=== PATIENT | female | born 1965 | race Caucasian/White ===

== ENCOUNTER 2017-05-27 11:05 | Emergency (ER) | payer OTHER ==
[2017-05-27] MEDS ORDERED: Aspirin Low Dose CHEW TAB* 81 MG PO ONE (11:07)
[2017-05-27 11:55] LABS: Hematocrit 35 % (35-47); Hemoglobin 11.2 g/dl (12.0-16.0); Mean Corpuscular HGB Conc 32 g/dl (31-36); Mean Corpuscular Hemoglobin 28 pg (27-31); Mean Corpuscular Volume 86 fL (80-97); Mean Platelet Volume 8 um3 (7.4-10.4); Red Blood Count 4.06 10^6/ul (4.0-5.4); Red Cell Distribution Width 14 % (10.5-15); White Blood Count 6.7 10^3/ul (3.5-10.8)
--- NOTE | 2017-05-27 11:59 | RAD ---
Indication: Chest pain, pneumonia. Single frontal view of the chest performed at 1130 hours was reviewed. Comparison is made with previous exam dated August 15, 2010. No mediastinal shift is noted. Heart is of normal size and configuration. Lung best appear clear. IMPRESSION: NO ACTIVE CARDIOPULMONARY DISEASE IS NOTED.
[2017-05-27 12:10] LABS: Albumin 3.8 g/dL (3.2-5.2); BUN/Creatinine Ratio 15.7 (8-20); Calcium 8.8 mg/dL (8.6-10.3); EGFR African American 112.6 (>60); EGFR Non-African American 87.5 (>60); Globulin 2.6 g/dL (2-4); Total Bilirubin 0.6 mg/dL (0.2-1.0); Total Protein 6.4 g/dL (6.4-8.9)
[2017-05-27 12:12] LABS: Troponin I 0.01 ng/mL (<0.04)
[2017-05-27 15:06] VITALS: BP 104/62
--- NOTE | 2017-05-27 16:06 | CONSULT ---
Cardiology Note do not bill for this encounter Patient ruled out of ACS Normal stress echo (see report) Ok to discharge from a cardiac standpoint Patient should follow up with Dr. Navarrete
--- NOTE | 2017-05-27 19:00 | ED ---
Angely Lawrence Edward, scribed for Kenan Bass MD on 05/27/17 at 1128 . HPI Chest Pain - HPI Summary HPI Summary: 52 y/o female presents to ED c/o CP during an annual checkup with Dr. Navarrete ( Cardiology) at around 09:30 this morning. The pain felt like GERD that she had before. The pain did not radiate and lasted for around 10 minutes. The pain is not aggravated with exercise or movement. The patient had low BP (80/60) immediately after she experienced CP and diaphoresis. Denies SOB, nausea. 3 stents in heart 2009. No PMHx DM. Occasional EtOH, non-smoker. At Dr. Navarrete's office the patient had 2 EKG's done; the EKG done in the ED shows no significant abnormalities. - History of Current Complaint Chief Complaint: EDChestPainROMI Hx Obtained From: Patient Onset/Duration: Started Hours Ago - This morning, Resolved Timing: Lasting Minutes - 10 minutes Pain Intensity: 0 Chest Pain Radiates: No Character: Other: - Discomfort, like previous episodes of GERD Associated Signs and Symptoms: Positive: Chest Pain, Diaphoresis, Other: - Low BP immediately after CP, now back up. Negative: Shortness of Breath, Nausea - Allergy/Home Medications Allergies/Adverse Reactions: Allergies Allergy/AdvReac Type Severity Reaction Status Date / Time statins Allergy GI Upset Uncoded 05/27/17 11:20 PMH/Surg Hx/FS Hx/Imm Hx Previously Healthy: No Endocrine/Hematology History: Reports: Other Endocrine/Hematological Disorders - Dyslipidemia Cardiovascular History: Reports: Hx Myocardial Infarction Respiratory History: Reports: Hx Asthma - Surgical History Surgery Procedure, Year, and Place: Stent, Cardiac Catheter Infectious Disease History: No Infectious Disease History: Denies: Traveled Outside the [place] in Last 30 Days - Family History Known Family History: Positive: Cardiac Disease - [place] - sister, mom (both in 30's ) - Social History Occupation: Employed Full-time Lives: With Family Review of Systems Positive: Skin Diaphoresis Eyes: Negative ENT: Negative Positive: Chest Pain, Other - Low BP immediately following CP Respiratory: Negative Negative: Shortness Of Breath Gastrointestinal: Negative Negative: Nausea Genitourinary: Negative Musculoskeletal: Negative Skin: Negative Neurological: Negative Psychological: Normal All Other Systems Reviewed And Are Negative: Yes Physical Exam - Summary Physical Exam Summary: The patient is well-nourished in no acute distress and in no acute pain. The skin is warm and slightly diaphoretic and skin color reflects adequate perfusion. HEENT: The head is normocephalic and atraumatic. The pupils are equal and reactive. The conjunctivae are clear and without drainage. Nares are patent and without drainage. Mouth reveals moist mucous membranes and the throat is without erythema and exudate. The external ears are intact. The ear canals are patent and without drainage. The tympanic membranes are intact. Neck is supple with full range of motion and non-tender. There are no carotid bruits. There is no neck vein distension. Respiratory: Chest is non-tender. Lungs are clear to auscultation and breath sounds are symmetrical and equal. Cardiovascular: Hear is regular rate and rhythm. There is no murmur or rub auscultated. There is no peripheral edema and pulses are symmetrical and equal. Abdomen: The abdomen is soft and non-tender. There are normal bowel sounds heard in all four quadrants and there is no organomegaly palpated. Musculoskeletal: There is no back pain noted. Extremities are non-tender with full range of motion. There is good capillary refill. There is no peripheral edema or calf tenderness elicited. Neurological: Patient is alert and oriented to person, place and time. The patient has symmetrical motor strength in all four extremities. Cranial nerves are grossly intact. Deep tendon reflexes are symmetrical and equal in all four extremities. Psychiatric: The patient has an appropriate affect and does not exhibit any anxiety or depression. Triage Information Reviewed: Yes Vital Signs On Initial Exam: Initial Vitals BP 141/72 05/27/17 11:16 Vital Signs Reviewed: Yes Diagnostics - Vital Signs Vital Signs Temp Pulse Resp BP Pulse Ox 05/27/17 11:24 100 05/27/17 11:17 98.9 F 66 20 141/72 100 05/27/17 11:16 141/72 - Laboratory Lab Results: Lab Results 05/27/17 05/27/17 05/27/17 Range/Units 11:44 11:44 11:44 WBC 6.7 (3.5-10.8) 10^3/ul RBC 4.06 (4.0-5.4) 10^6/ul Hgb 11.2 L (12.0-16.0) g/dl Hct 35 (35-47) % MCV 86 (80-97) fL MCH 28 (27-31) pg MCHC 32 (31-36) g/dl RDW 14 (10.5-15) % Plt Count 210 (150-450) 10^3/ul MPV 8 (7.4-10.4) um3 Neut % (Auto) 69.1 (38-83) % Lymph % (Auto) 20.8 L (25-47) % [place] % (Auto) 7.3 (1-9) % Eos % (Auto) 2.1 (0-6) % Baso % (Auto) 0.7 (0-2) % Absolute Neuts (auto) 4.6 (1.5-7.7) 10^3/ul Absolute Lymphs (auto) 1.4 (1.0-4.8) 10^3/ul Absolute Monos (auto) 0.5 (0-0.8) 10^3/ul Absolute Eos (auto) 0.1 (0-0.6) 10^3/ul Absolute Basos (auto) 0 (0-0.2) 10^3/ul Absolute Nucleated RBC 0 10^3/ul Nucleated RBC % 0.1 INR (Anticoag Therapy) 0.87 L (0.89-1.11) Sodium 133 (133-145) mmol/L Potassium 4.0 (3.5-5.0) mmol/L Chloride 104 (101-111) mmol/L Carbon Dioxide 24 (22-32) mmol/L Anion Gap 5 (2-11) mmol/L BUN 11 (6-24) mg/dL Creatinine 0.70 (0.51-0.95) mg/dL Est GFR ( Amer) 112.6 (>60) Est GFR (Non-Af Amer) 87.5 (>60) BUN/Creatinine Ratio 15.7 (8-20) Glucose 109 H (70-100) mg/dL Lactic Acid (0.5-2.0) mmol/L Calcium 8.8 (8.6-10.3) mg/dL Total Bilirubin 0.60 (0.2-1.0) mg/dL AST 24 (13-39) U/L ALT 19 (7-52) U/L Alkaline Phosphatase 49 (34-104) U/L Troponin I 0.01 (<0.04) ng/mL B-Natriuretic Peptide ( - 100) pg/mL Total Protein 6.4 (6.4-8.9) g/dL Albumin 3.8 (3.2-5.2) g/dL Globulin 2.6 (2-4) g/dL Albumin/Globulin Ratio 1.5 (1-3) 05/27/17 05/27/17 05/27/17 Range/Units 11:44 11:44 14:45 WBC (3.5-10.8) 10^3/ul RBC (4.0-5.4) 10^6/ul Hgb (12.0-16.0) g/dl Hct (35-47) % MCV (80-97) fL MCH (27-31) pg MCHC (31-36) g/dl RDW (10.5-15) % Plt Count (150-450) 10^3/ul MPV (7.4-10.4) um3 Neut % (Auto) (38-83) % Lymph % (Auto) (25-47) % [place] % (Auto) (1-9) % Eos % (Auto) (0-6) % Baso % (Auto) (0-2) % Absolute Neuts (auto) (1.5-7.7) 10^3/ul Absolute Lymphs (auto) (1.0-4.8) 10^3/ul Absolute Monos (auto) (0-0.8) 10^3/ul Absolute Eos (auto) (0-0.6) 10^3/ul Absolute Basos (auto) (0-0.2) 10^3/ul Absolute Nucleated RBC 10^3/ul Nucleated RBC % INR (Anticoag Therapy) (0.89-1.11) Sodium (133-145) mmol/L Potassium (3.5-5.0) mmol/L Chloride (101-111) mmol/L Carbon Dioxide (22-32) mmol/L Anion Gap (2-11) mmol/L BUN (6-24) mg/dL Creatinine (0.51-0.95) mg/dL Est GFR ( Amer) (>60) Est GFR (Non-Af Amer) (>60) BUN/Creatinine Ratio (8-20) Glucose (70-100) mg/dL Lactic Acid 0.8 (0.5-2.0) mmol/L Calcium (8.6-10.3) mg/dL Total Bilirubin (0.2-1.0) mg/dL AST (13-39) U/L ALT (7-52) U/L Alkaline Phosphatase (34-104) U/L Troponin I 0.00 (<0.04) ng/mL B-Natriuretic Peptide 43 ( - 100) pg/mL Total Protein (6.4-8.9) g/dL Albumin (3.2-5.2) g/dL Globulin (2-4) g/dL Albumin/Globulin Ratio (1-3) Result Diagrams: 05/27/17 11:44 05/27/17 11:44 Lab Statement: Any lab studies that have been ordered have been reviewed, and results considered in the medical decision making process. - Radiology CXR Xray Interpretation: No Acute Changes - NO ACTIVE CARDIOPULMONARY DISEASE NOTED. Radiology Interpretation Completed By: Radiologist - EKG 1 EKG Rhythm: Sinus Rhythm - @ 66 bpm EKG Interpretation: 11:19 - Poor R-wave progression. No STEMI. L axis. Chest Pain Course/Dx - Course Assessment/Plan: 52 y/o female presents to ED c/o CP during an annual checkup with Dr. Navarrete at around 09:30 this morning. The pain felt like GERD that she had before. The pain did not radiate and lasted for around 10 minutes. The pain is not aggravated with exercise or movement. The patient had low BP (80/60) immediately after she experienced CP and diaphoresis. Denies SOB, nausea. 3 stents in heart 2009. No PMHx DM. Occasional EtOH, non-smoker. EKG @ 11:19 - Poor R-wave progression. No STEMI. L axis. sinus rhythm @ 66 bpm, and shows no significant abnormalities from previous [address] Navarrete's office. CXR SHOWS NO ACTIVE CARDIOPULMONARY DISEASE NOTED. Stress test in ED course was negative. On reeval, I discussed test results and imaging results with the patient. Patient will be d/c home with f/u with PCP and to consider taking Prilosec 1 tablet daily. Patient is agreeable with this plan. - Chest Pain Differential Diagnosis/HQI/PQRI: Acute [place], ACS, GI Disease - Diagnoses Provider Diagnoses: Chest pain Discharge - Discharge Plan Condition: Stable Disposition: HOME Patient Education Materials: Chest Pain (ED) Referrals: Stan Coello MD [Primary Care Provider] - 3 Days (Please f/u in 2-3 days) Additional Instructions: CONSIDER PRILOSEC 1 TABLET DAILY The documentation as recorded by the Angely moreno Edward accurately reflects the service I personally performed and the decisions made by me, Kenan Bass MD.
== END 2017-05-27 16:35 | disposition home or self-care (01) ==
LOC: ED 11:05
DX: R07.9 Chest pain, unspecified (principal); K21.9 Gastro-esophageal reflux disease without esophagitis
CPT/HCPCS: 36415; 71010; 80053; 83605; 83880; 84484; 85025; 85610; 93005; 93017; 99283

== ENCOUNTER 2019-08-30 07:07 | Observation (INO) | payer OTHER ==
[2019-08-30] MEDS ORDERED: Naproxen TAB* 250 MG ONE (07:32)
[2019-08-30] MEDS ORDERED: Ondansetron INJ* 2 MG/ML VIAL ONE ×2 (07:32→10:19)
[2019-08-30] MEDS ORDERED: Scopolamine 1.5 mg* PATCH ONE (07:32)
[2019-08-30] MEDS ORDERED: LORazepam TAB(*) 1 MG ONE (07:33)
[2019-08-30] MEDS ORDERED: Nitro 2% OINT* (Nitroglycerin) 1 INCH/PAK PAK ONE (07:33)
[2019-08-30] MEDS ORDERED: oxyCODONE SR TAB(*) 10 MG TAB.SR ONE (07:33)
[2019-08-30 07:57] LABS: BUN/Creatinine Ratio 26.1 (8-20); Blood Urea Nitrogen 18 mg/dL (6-24); CO2 Carbon Dioxide 25 mmol/L (22-32); Chloride 106 mmol/L (101-111); EGFR African American 106.9 (>60); EGFR Non-African American 88.3 (>60); Glucose 114 mg/dL (70-100); Sodium 137 mmol/L (135-145)
[2019-08-30] MEDS ORDERED: Clindamycin 900 MG/D5W BAG(*) 900 MG/50 ML BAG IVPB ONE (08:00)
[2019-08-30 08:05] LABS: HCG Pregnancy < 0.60 mIU/mL
[2019-08-30 08:15] LABS: Anion Gap 6 mmol/L (2-11)
[2019-08-30] MEDS ORDERED: Heparin 2 UNITS/ML IVPREMIX* 2,000 ML IV ONE (08:23)
[2019-08-30] MEDS ORDERED: Lidocaine 1% INJ* 10 MG/ML 30 ML SDV ONE (08:23)
[2019-08-30] MEDS ORDERED: Iohexol 350 (CONTRAST) 200 ML MDV IV ONE (08:23)
[2019-08-30] MEDS ORDERED: fentaNYL* 50 MCG/ML 5 ML VIAL (250 MCG VIAL) ONE (08:27)
[2019-08-30] MEDS ORDERED: Midazolam* 1 MG/ML 5 ML VIAL (5 MG) ONE (08:27)
[2019-08-30] MEDS ORDERED: Ketorolac INJ* 30 MG/ML 1 ML VIAL ONE ×2 (08:28→09:45)
[2019-08-30] MEDS ORDERED: nitroGLYCERIN DRIP* 25,000 MCG/250 ML BTL ONE (08:28)
[2019-08-30] MEDS ORDERED: HYDROmorphone PCA* 20 MG/20 ML PCA.SYRING PCA SCH (10:00)
[2019-08-30] MEDS ORDERED: HYDROmorphone INJ1* 1 MG/ML SYRINGE ONE (10:12)
[2019-08-30] MEDS ORDERED: Atropine SYRINGE* 0.1 MG/ML 10 ML SYRINGE (1 MG) ONE (10:15)
[2019-08-30] MEDS ORDERED: PROCHLORPERAZINE INJ 5 MG/ML 2 ML VIAL ONE (10:21)
[2019-08-30] MEDS ORDERED: Nitroglycerin TAB 0.4 MG* 0.4 MG TAB SL PRN (11:55)
[2019-08-30] MEDS ORDERED: Ondansetron INJ* 2 MG/ML VIAL IV SCH ×2 (13:30→16:00)
--- NOTE | 2019-08-30 13:44 | HP ---
CC: Dr. Raymond Garrido; Dr. Stan Coello; Dr. Cuca Navarrete * ADMISSION HISTORY AND PHYSICAL: DATE OF ADMISSION: 08/30/19 ATTENDING PHYSICIAN: Dr. Martita Samuel.* (DICTATED BY DANIELLE RAYMUNDO NP) CONSULTING: Dr. Raymond Garrido. PRIMARY CARE PROVIDER: Dr. Stan Coello. APPRENTICE STYLIST: Cuca Navarrete MD. CHIEF COMPLAINT: Elective uterine artery embolization. HISTORY OF PRESENT ILLNESS: Ms. Kern is a very pleasant 54-year-old female patient with a history of coronary artery disease, hyperlipidemia, and GERD who presented today with Dr. Garrido for an elective uterine artery embolization. The patient describes abnormal uterine bleeding for sometime and it was determined that she was a candidate for this procedure to control these symptoms. Please see Dr. Garrido's notes regarding her preoperative state. PAST MEDICAL HISTORY: Significant for myocardial infarction in 2009 with 3 stents, hyperlipidemia, and GERD. PAST SURGICAL HISTORY: Significant for 3 cardiac stents. MEDICATIONS: Her home medications include: 1. Selenium 200 mcg daily. 2. Omeprazole 40 mg b.i.d. 3. Fish oil 1 cap p.o. daily. 4. Simvastatin 10 mg p.o. daily. 5. Zantac 150 mg in the evening. 6. Niaspan 1500 mg p.o. daily. 7. Chromium 400 mcg daily. 8. Vitamin D 400 units p.o. daily. 9. Aspirin 81 mg daily. 10. Vitamin C 1000 mg p.o. daily. 11. Co-enzyme Q10 100 mg p.o. daily. 12. Multivitamin 1 tab p.o. daily. 13. Nitroglycerin 0.4 mg sublingual q.5 minutes as needed for chest pain, max 3 doses. 14. Lorazepam 1 mg as needed before MRIs or procedures. 15. Zinc aspartate 40 mg p.o. daily. ALLERGIES: The patient has an allergy to LISINOPRIL and to STATINS, although her allergy to STATIN was in particular with LIPITOR which caused muscle cramping. FAMILY HISTORY: Significant for her mother with coronary artery disease and [place]. SOCIAL HISTORY: The patient denies tobacco use. Denies alcohol use or any illicit drug use. She is . She lives at home with her who is her healthcare proxy, his name is Angelica. REVIEW OF SYSTEMS: The patient is currently mildly nauseous as she does state she has a dry mouth and some abdominal cramping and bloating. Otherwise, she denies any fever or chills. No vomiting. No focal weakness. No arthralgias or myalgias. She does state she does have some lower back pain from lying flat, but otherwise denies any further constitutional complaints. PHYSICAL EXAMINATION GENERAL: Reveals a well-appearing woman in no acute distress. She is seen in the PACU in the recovery room. VITAL SIGNS: Blood pressure 134/67, heart rate 63, respiratory rate 17, O2 saturation 97% on 2 L nasal cannula with a temperature of 97.3. HEENT: The patient is atraumatic, normocephalic. PERRLA. Nonicteric sclerae. Oral mucosa is dry. Tongue is midline. NECK: Supple. Nontender. No JVD noted. No thyromegaly appreciated. LUNGS: Clear bilaterally to auscultation with no wheezing, rhonchi or rales. CARDIOVASCULAR: S1, S2 present. No murmurs, gallops or rubs noted. Rate and rhythm are regular. She has currently regular sinus rhythm on telemetry. ABDOMEN: Soft, nondistended, somewhat tender diffusely with very hypoactive bowel sounds noted. EXTREMITIES: Her puncture site in the groin is clean, dry and intact. There is no hematoma or bleeding noted. Distal pulse is palpable. Full range of motion distal to the puncture site. NEUROLOGIC: She is grossly intact with no focal deficits. She is alert and oriented x3. PSYCHIATRIC: She is cooperative and appropriate. SKIN: Warm, dry and intact. DIAGNOSTIC STUDIES/LAB DATA: Sodium 137, potassium is hemolyzed, chloride 106 , CO2 25, BUN 18, creatinine 0.69, GFR 88.3. Glucose 114, calcium 9.0, and beta quant is less than 0.60. IMPRESSION: Ms. Kern is a 54-year-old patient with history of abnormal uterine bleeding who presents for elective uterine fibroid embolization with Dr. Garrido today. PLAN: The patient has been admitted to observation. DIAGNOSES: 1. Status post a uterine artery embolization: Primary plan of care will be as per Dr. Garrido. 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 She does have a scop patch on. She will also receive Zofran as needed. We will continue her on IV fluids. Because she is currently nauseous, I will start her on a clear liquid diet only and advance her diet slowly as tolerated. 2. History of coronary artery disease: The patient states she has had a negative stress test earlier this year. She is a patient of Dr. Navarrete. We will place her on telemetry postoperatively and continue to monitor heart rate. The patient denies any arrhythmias or any chest pain in the past several years and did not think that this will be an issue for her, but we will continue to monitor her telemetry nonetheless. I will continue to hold her aspirin postoperatively. This will be restarted when she is allowed to do so by Dr. Garrido. We will continue her statin, however, for her history of hyperlipidemia; however, her fish oil will also continued to be held postoperatively because of her increased chance of bleeding. 3. Diet: Clear liquid diet as noted above. 4. Activity: Out of bed as tolerated. 5. DVT prophylaxis: SCDs and ambulate as tolerated. 6. Disposition: Admitted to observation. 7. Code status: Full code. The rest of the patient's course should be determined by further diagnostics, laboratories and any other input from other providers as warranted during this admission. TIME SPENT: 60 minutes. DANIELLE RAYMUNDO, NAKUL [id number]/[facility] #: [id number] [place]
[2019-08-30] MEDS ORDERED: NS 0.9% 1000 ML** 1,000 ML IV SCH ×2 (14:15→18:15)
[2019-08-30] MEDS ORDERED: Ketorolac INJ* 15 MG/ML 1 ML VIAL IV PUSH SCH (14:30)
[2019-08-30] MEDS: Ketorolac INJ* 15 MG/ML 1 ML VIAL IV PUSH SCH ×2 (16:26→21:50)
--- NOTE | 2019-08-30 17:52 | PN ---
Progress Note - Progress Note Date of Service: 08/30/19 SOAP: Subjective: Prior emesis with water, but no nausea now. Feels "pressure" in pelvis, pain rated 4/10. Denies CP or SOB. Denies pain at right groin. Objective: Selected Entries 08/30/19 08/30/19 15:20 16:08 Temperature 97.2 F Temperature Tympanic Source Pulse Rate 64 Respiratory 18 Rate Blood Pressure 128/80 (mmHg) Blood Pressure 96 Mean O2 Sat by Pulse 96 Oximetry Patient on Room No Air NAD, AAO x 3 Right groin is soft and nontender Small amount of dry blood on gauze 2+ pulse at R CAR SANDER, pop and DPA Suprapubic area is soft and minimally tender with palpation. No rebound or guarding. Assessment: 54 YOF s/p Uterine Fibroid Arterial Embolization with pain and nausea reasonably well controlled. Plan: 1. Switch Zofran to Compazine 10 mg IV every 6 hours with Zofran 4 mg PRN. 2. Standard IR protocol post UFE pain & nausea control.
[2019-08-30] MEDS ORDERED: Ondansetron INJ* 2 MG/ML VIAL IV PRN (17:53)
[2019-08-30] MEDS ORDERED: Famotidine TAB* 20 MG PO SCH (18:00)
[2019-08-30] MEDS: PROCHLORPERAZINE INJ 5 MG/ML 2 ML VIAL IV SCH (18:17)
[2019-08-30] MEDS: Pantoprazole TAB * 40 MG TAB PO SCH (21:41)
[2019-08-31] MEDS: PROCHLORPERAZINE INJ 5 MG/ML 2 ML VIAL IV SCH ×2 (00:22→06:38)
[2019-08-31] MEDS ORDERED: NS 0.9% 1000 ML** 1,000 ML IV SCH (00:30)
[2019-08-31] MEDS ORDERED: hydrOXYzine HCL TAB* 10 MG PO PRN (04:50)
[2019-08-31] MEDS: Ketorolac INJ* 15 MG/ML 1 ML VIAL IV PUSH SCH (05:01)
[2019-08-31 07:34] VITALS: BP 120/54
--- NOTE | 2019-08-31 08:47 | PN ---
Progress Note - Progress Note Date of Service: 08/31/19 SOAP: Subjective: Pain rated at /10. Nausea controlled overnight. No emesis overnight. Has drank water and clears. + void and ambulation Objective: Selected Entries 08/31/19 07:34 Temperature 98.3 F Temperature Oral Source Pulse Rate 68 Respiratory 16 Rate Blood Pressure 120/54 (mmHg) Blood Pressure 76 Mean O2 Sat by Pulse 99 Oximetry Patient on Room Yes Air NAD, AAO x 3 Abd is soft and minimally tender to deep palpation Right groin is soft and nontender. Dried blood on dressing. 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 Plan: 1. Transition IV to PO pharmacotherapy. 2. Encourage diet and more ambulation. 3. Discharge medications will be as follows: Toradol 10 mg PO Q 6 hours x 3 days (Dispense #15 with one refill) AFTER Toradol is complete: Ibuprofen 400 mg PO Q 6 hours OR Naprosyn 225 mg PO Q 8 hours for 3-5 days (do not take both) [place] 5/325, take 1 or 2 tablets by mouth Q 6 hours PRN breakthrough pain ( Dispense #40) Compazine 10 mg PO Q 6 hours x 7 days (Dispense #30 with one refill) Scopolamine 1.5 mg transdermal to mastoid process. On 09/02/19 at 900 AM, remove current patch, replace with new patch and wear x 3 days. Drink one cup of laxative tea daily (For example, "Smooth Move") for one week.
[2019-08-31] MEDS ORDERED: HYDROcodone/ACETAMIN 5-325 MG* 1 TAB PO PRN (08:48)
[2019-08-31] MEDS ORDERED: CMCS - Simvastatin TAB(NF) 10 MG TAB PO SCH (09:00)
[2019-08-31] MEDS ORDERED: Ketorolac TAB * 10 MG TAB PO SCH (09:00)
[2019-08-31] MEDS ORDERED: Niacin ER CAP* 500 MG CAP.ER PO SCH (09:00)
[2019-08-31] MEDS: Pantoprazole TAB * 40 MG TAB PO SCH (09:28)
[2019-08-31] MEDS ORDERED: Prochlorperazine TAB* 10 MG PO SCH (12:00)
--- NOTE | 2019-08-31 23:29 | DS ---
CC: Dr. Stan Coello; Dr. Raymond Garrido * DISCHARGE SUMMARY: DATE OF ADMISSION: 08/30/19 DATE OF DISCHARGE: 08/31/19 PRIMARY CARE PROVIDER: Dr. Stan Coello. CONSULTING FOR THIS ADMISSION: Dr. Raymond Garrido. ATTENDING FOR THIS DISCHARGE: Dr. Martita Samuel.* (DICTATED BY DANIELLE RAYMUNDO NP) HOSPITAL COURSE: Please refer to admitting H and P on 08/30/19, but in short, Ms. Kern is a 54-year-old female patient with a history of coronary artery disease, hyperlipidemia, and GERD, who presented to Dr. Garrido with complaints of abnormal uterine bleeding. She presented yesterday for an elective uterine artery embolization procedure to control these symptoms. The patient underwent successful catheterization and embolization of the uterine artery. Please see Dr. Garrido's notes on the procedure that was performed. On 08/31/19, the patient had an essentially uneventful post-procedure course. She was cleared by Dr. Garrido. 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 She was placed on telemetry for 24 hours post procedure given her history of myocardial infarction in the past and stenting. She had no changes on telemetry. She experienced no chest pain. She had stable blood pressure and heart rate. Laboratory values were also within normal range. The patient was ambulatory and feeling well and very excited to be discharged to home when I saw her in the morning. Again, the patient was cleared by Dr. Garrido for discharge to home this morning. DISCHARGE DIAGNOSES: 1. Status post uterine artery embolization. 2. History of coronary artery disease, stable. 3. History of hyperlipidemia. DISCHARGE MEDICATIONS: Include: 1. Selenium 200 mcg p.o. daily. 2. Omeprazole 40 mg p.o. b.i.d. 3. Fish oil 1 cap p.o. daily. 4. Simvastatin 10 mg 3 times a week. 5. Zantac 150 mg p.o. in the evening. 6. Niacin 1500 mg p.o. daily. 7. Chromium 400 mcg p.o. daily. 8. Vitamin D 400 units p.o. daily. 9. Aspirin 81 mg p.o. daily. 10. Vitamin C 1000 mg p.o. daily. 11. Coenzyme Q10, 1 tablet p.o. daily. 12. Multivitamin 1 tablet p.o. daily. 13. Nitroglycerin 0.4 mg sublingual q.5 minutes as needed for chest pain. 14. Zinc 40 mg p.o. daily. New medications: 1. Scopolamine transdermal patch 1.5 mg 1 patch to the mastoid process, to begin on 09/02/19 and apply for 72 hours. 2. Prochlorperazine 10 mg p.o. q.6 hours as needed for nausea or vomiting. 3. Ketorolac 10 mg p.o. q.6 hours as needed for [id number] pain. 4. Ibuprofen 400 mg p.o. q.6 hours p.r.n. [id number] pain, do not take while taking Toradol. 5. [place] 5/325 mg 1 to 2 tablets q.6 hours as needed for [id number] pain. REVIEW OF SYSTEMS: On the day of discharge, the patient denies any fever, fatigue, or chills. No shortness of breath. No nausea, no vomiting, no abdominal pain or cramping. No urinary complaints and no further constitutional complaints. PHYSICAL EXAMINATION: The patient is awake and alert. Vital signs are blood pressure 120/54, heart rate 68, respiratory rate 16, O2 saturation 99% on room air with temperature of 98.3. HEENT: The patient is atraumatic, normocephalic. PERRLA. Anicteric sclerae. Oral mucosa is moist. Tongue is midline. Neck is supple, nontender. No JVD noted. No carotid bruit auscultated. Cardiovascular: Normal S1, S2. Rate and rhythm are regular. No murmurs, gallops, or rubs noted. Lungs are clear bilaterally to auscultation with no wheezing, rhonchi, or rales. Abdomen is soft, nontender, nondistended. Positive bowel sounds in all 4 quadrants. : Deferred. Musculoskeletal: There is no clubbing, no cyanosis, no edema. She has posterior distal pulses palpable. Full range of motion, steady gait. Gross motor and sensation are intact. Neurologic: Grossly intact with no focal deficits. Psychiatric: Cooperative, somewhat anxious but appropriate. LABORATORY DATA: Sodium 137, potassium 4, chloride 106, CO2 25, BUN 18, creatinine 0.69, GFR 88.3, glucose 114, calcium 9.0. DISPOSITION: The patient was discharged to home in the care of her in stable condition. FOLLOWUPS: The patient was instructed to follow up with Dr. Garrido. Their office will call her for followup appointment and Dr. Stan Coello in the next 1 to 2 weeks. ACTIVITY: Progress activity as tolerated. DIET: Regular as tolerated. The patient was discharged in stable condition. All questions were answered. TIME SPENT: Thirty five minutes on discharge planning. DANIELLE RAYMUNDO, LOGISTICS LOSS PREVENTION MANAGER [id number]/[facility] #: [id number] [place]
== END 2019-08-31 12:17 | disposition home or self-care (01) ==
LOC: CHICATH 07:07 → SSU 11:39
PROVIDERS: ADMIT Internal Medicine; ATTEND Internal Medicine
DX: N92.4 Excessive bleeding in the premenopausal period (principal); E78.5 Hyperlipidemia, unspecified; I25.10 Atherosclerotic heart disease of native coronary artery without angina pectoris; K21.9 Gastro-esophageal reflux disease without esophagitis; Z79.82 Long term (current) use of aspirin; Z79.899 Other long term (current) drug therapy
CPT/HCPCS: 36415; 37243; 75736; 76937; 80048; 84702; 99156; 99157; A9270-GY; C1769; C1884; C1887; C1894; G0378; J0461; J0780; J1170; J1644; J1885; J2250; J2405; J3010; Q0164

== ENCOUNTER 2024-05-31 16:03 | Observation (INO) ==
[2024-05-31] MEDS: Lactated Ringers 1000 ml BAG 1,000 ML IV ONE (19:15)
[2024-05-31 19:32] LABS: ABS Lymphocytes 0.8 10^3/uL (1.0-4.8); ABS Monocytes 0.6 10^3/uL (0.0-0.9); ABS Neutrophils 5.1 10^3/uL (1.5-7.6); Hematocrit 41.2 % (35-45); Hemoglobin 14.8 g/dL (11.5-14.3); Lymphocyte % 12.3 %; Mean Corpuscular Hemoglobin 31.6 pg (27-33); Mean Corpuscular Hgb Conc 35.9 g/dL (31-36); Mean Corpuscular Volume 88.1 fL (80-97); Mean Platelet Volume 7.4 fL (7.5-11.2); Nucleated Red Blood Cells % 0.1 %/100WBC (0.0-0.8); Platelet Count 186 10^3/uL (150-450); Red Blood Count 4.67 10^6/uL (3.63-4.92); Red Cell Distribution Width 12.3 % (12-17); White Blood Count 6.6 10^3/uL (3.8-11.8)
[2024-05-31] MEDS: Ondansetron 4 mg VIAL 2 MG/ML 2 ml VIAL IV ONE (19:52)
[2024-05-31 20:44] LABS: ALT 27 U/L (7-52); Albumin 4.1 g/dL (3.2-5.2); Albumin/Globulin Ratio 1.8 (1-3); Alkaline Phosphatase 82 U/L (35-149); Anion Gap 10 mmol/L (2-16); Blood Urea Nitrogen 12 mg/dL (6-24); CO2 Carbon Dioxide 24 mmol/L (22-32); Calcium 9.1 mg/dL (8.6-10.3); Chloride 80 mmol/L (101-111); Creatinine, Serum 0.55 mg/dL (0.51-0.95); Globulin 2.3 g/dL (2-4); Glucose 111 mg/dL (70-100); Sodium 114 mmol/L (135-145); Total Bilirubin 0.9 mg/dL (0.2-1.0); Total Protein 6.4 g/dL (6.4-8.9); eGFR CKD-EPI 104.9 (>60)
[2024-05-31 21:43] LABS: Creatinine, Serum 0.5 mg/dL (0.51-0.95); Potassium 3.5 mmol/L (3.5-5.0); eGFR CKD-EPI 107.3 (>60)
[2024-06-01 01:07] LABS: Osmolality Serum 240 mOsm/kg (275-295)
[2024-06-01 02:28] LABS: Urine Osmo 169 mOsm/kg (150-1150)
[2024-06-01 05:54] LABS: ABS Lymphocytes 1.7 10^3/uL (1.0-4.8); ABS Monocytes 0.6 10^3/uL (0.0-0.9); ABS Neutrophils 2.2 10^3/uL (1.5-7.6); ABS Nucleated RBC 0.02 10^3/ul; Eosinophil % 0.6 %; Hematocrit 41.8 % (35-45); Hemoglobin 14.7 g/dL (11.5-14.3); Mean Corpuscular Hemoglobin 30.9 pg (27-33); Mean Corpuscular Hgb Conc 35.2 g/dL (31-36); Mean Corpuscular Volume 87.7 fL (80-97); Mean Platelet Volume 7.4 fL (7.5-11.2); Nucleated Red Blood Cells % 0.5 %/100WBC (0.0-0.8); Platelet Count 199 10^3/uL (150-450); Red Blood Count 4.76 10^6/uL (3.63-4.92); Red Cell Distribution Width 12.6 % (12-17); White Blood Count 4.5 10^3/uL (3.8-11.8)
[2024-06-01 07:00] LABS: Anion Gap 9 mmol/L (2-16); Blood Urea Nitrogen 11 mg/dL (6-24); CO2 Carbon Dioxide 27 mmol/L (22-32); Calcium 9.2 mg/dL (8.6-10.3); Chloride 90 mmol/L (101-111); Creatinine, Serum 0.52 mg/dL (0.51-0.95); Glucose 98 mg/dL (70-100); Sodium 126 mmol/L (135-145); eGFR CKD-EPI 106.3 (>60)
[2024-06-01] MEDS: Aspirin EC 81 mg TAB.EC (enteric coated) PO SCH (07:47)
[2024-06-01] MEDS: D5W 500 ml BAG 500 ML IV ONE (07:48)
[2024-06-01] MEDS: Pantoprazole Packet (NF) 40 MG GRANPKT.DR PO SCH (08:13)
[2024-06-01] MEDS ORDERED: Dextrose 50% Syringe 50 ml 25 GM/50 ML SYRINGE ONE (08:21)
[2024-06-01 11:48] LABS: Calcium 9.2 mg/dL (8.6-10.3); Creatinine, Serum 0.61 mg/dL (0.51-0.95); Potassium 3.7 mmol/L (3.5-5.0); eGFR CKD-EPI 102.3 (>60)
[2024-06-01] MEDS: Albuterol HFA INHALER 8 gm MDI INH PRN (19:31)
[2024-06-01] MEDS: Mometasone/Formoter 200/5 MDI INH SCH (19:32)
[2024-06-02 06:43] LABS: Potassium 4.2 mmol/L (3.5-5.0)
[2024-06-02 06:44] LABS: Calcium 9.2 mg/dL (8.6-10.3); Creatinine, Serum 0.61 mg/dL (0.51-0.95); eGFR CKD-EPI 102.3 (>60)
[2024-06-02 07:19] LABS: ABS Eosinophils 0.1 10^3/uL (0.0-0.5); ABS Monocytes 0.5 10^3/uL (0.0-0.9); ABS Nucleated RBC 0.02 10^3/ul; Eosinophil % 2.2 %; Hematocrit 43.2 % (35-45); Hemoglobin 15.1 g/dL (11.5-14.3); Lymphocyte % 42.6 %; Mean Corpuscular Hemoglobin 31.6 pg (27-33); Mean Corpuscular Volume 90.4 fL (80-97); Mean Platelet Volume 7.3 fL (7.5-11.2); Nucleated Red Blood Cells % 0.4 %/100WBC (0.0-0.8); Platelet Count 183 10^3/uL (150-450); Red Blood Count 4.78 10^6/uL (3.63-4.92); Red Cell Distribution Width 12.6 % (12-17); White Blood Count 4.7 10^3/uL (3.8-11.8)
[2024-06-02 11:08] VITALS: BP 117/74
== END 2024-06-02 12:30 | disposition home or self-care (01) ==
LOC: ED 16:03 → EDHOLD 16:03 → SUATTDRO 23:39 → SSU 06-01 14:16
PROVIDERS: ADMIT Student in an Organized Health Care Education/Training Program; ATTEND Internal Medicine